=== PATIENT | female | born 1990 | race Caucasian/White ===

== ENCOUNTER 2022-10-21 23:56 | Emergency (ER) | payer BC ==
[2022-10-22] MEDS ORDERED: diphenhydrAMINE 50 MG/ML VIAL ONE (00:25)
[2022-10-22] MEDS ORDERED: Famotidine/PF 20 mg/2ml Vial ONE (00:25)
[2022-10-22] MEDS ORDERED: methylPREDNISolone Sod Succ/PF 125 MG/2 ML VIAL ONE (00:25)
[2022-10-22] MEDS ORDERED: Ondansetron PF 4 MG/2 ML Vial ONE (00:42)
== END 2022-10-22 01:59 | disposition home or self-care (01) ==
LOC: MADERS 23:56
DX: T78.40XA Allergy, unspecified, initial encounter (principal); R22.9 Localized swelling, mass and lump, unspecified
CPT/HCPCS: 96374; 96375; J1200; J2405; J2930; S0028